=== PATIENT | female | born 1985 | race Caucasian/White ===

== ENCOUNTER 2019-09-28 11:41 | Outpatient (CLI) | payer OTHER, SELFPAY ==
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
== END 2019-09-28 11:42 | disposition home or self-care (01) ==
PROVIDERS: PCP Physician Assistant; Visit Provider Physician Assistant
DX: M54.6 Pain in thoracic spine (principal)
CPT/HCPCS: 72072

== ENCOUNTER 2019-09-28 17:54 | Emergency (ER) | payer OTHER, SELFPAY ==
[2019-09-28 18:08] VITALS: BP 151/104; PULSE 70; RESP 16; TEMP 36.4; O2SAT 100
--- NOTE | 2019-09-28 18:54 | ED.GENADULT ---
HPI - General Adult General Chief complaint: Headache Stated complaint: headaches Time Seen by Provider: 09/28/19 18:28 Source: patient and family Mode of arrival: ambulatory Limitations: no limitations History of Present Illness HPI narrative: Patient is a 34-year-old female who presents to emergency department for evaluation of headache for the last day noting that she has diffuse headache which is different than her typical migraine headaches had an episode of emesis today felt dizzy yesterday has been taking naproxen prescribed by her primary care doctor. Patient on arrival is resting comfortably in the room in no distress denies any URI symptoms. Related Data Home Medications Medication Instructions Recorded Confirmed escitalopram oxalate [Lexapro] mg 09/28/19 naproxen 09/28/19 trazodone 50 mg PO HS 09/28/19 Allergies Allergy/AdvReac Type Severity Reaction Status Date / Time clindamycin Allergy Intermediate rash Verified 09/28/19 17:55 Penicillins Allergy Unknown Rash Verified 09/28/19 17:55 Sulfa (Sulfonamide Allergy Unknown Rash Verified 09/28/19 17:55 Antibiotics) Review of Systems Review of Systems: All systems reviewed & are unremarkable except as noted in HPI and below PMFSH Past Medical History Medical History (Updated 09/28/19 @ 19:45 by Nirmal Benito PA-C) Migraine headache Social History Social History (Updated 09/28/19 @ 18:55 by Nirmal Benito PA-C) Smoking status: Never smoker Gender identity (if verbalized by the patient): Female Exam Narrative: Exam Narrative: GENERAL: Well-appearing, well-nourished, and in no acute distress. HEAD: Normocephalic, atraumatic. EYES: PERRLA and EOMI. ENT: Nares clear, no rhinorrhea or epistaxis. Mucous membranes moist. CHEST: Clear to auscultation. No respiratory distress. No wheezes rales or rhonchi HEART: Regular rate and rhythm. No murmur heard. EXTREMITIES: Normal range of motion. No edema. SKIN: Warm, dry, no rash. NEURO: No focal deficits. Alert and oriented x3. Cranial nerves II through XII grossly intact. Normal speech and gait PSYCH: Normal mood and affect. Course Course Emergency Course: Patient in the room in no distress aware of case findings treatment plan and diagnosis Vital Signs Vital signs: Vital Signs Temperature 97.6 F 09/28/19 18:08 Pulse Rate 70 09/28/19 18:08 Respiratory Rate 16 09/28/19 18:08 Blood Pressure 151/104 H 09/28/19 18:08 Pulse Oximetry 100 09/28/19 18:08 Temperature 97.6 F 09/28/19 18:08 Pulse Rate 70 09/28/19 18:08 Respiratory Rate 16 09/28/19 18:08 Blood Pressure 151/104 H 09/28/19 18:08 Pulse Oximetry 100 09/28/19 18:08 Medical Decision Making MDM Narrative Medical decision making narrative: Patients headache was not sudden or maximal in onset. There are o focal neurological deficits on exam. Subarachnoid hemorrhage is felt to be unlikey at this time. There is no history of fever, and neck is supple without meningismus, making meningitis unlikely. No traumatic history or signs of trauma on exam. No risk factors for CVA, risk factors reviewed. NO ocular signs on exam and in history to suggest acute glaucoma. Patients headache is felt to be a reasonable candidate for outpatient evaluation Vital Signs Vital Signs: Vital Signs Temperature 97.6 F 09/28/19 18:08 Pulse Rate 70 09/28/19 18:08 Respiratory Rate 16 09/28/19 18:08 Blood Pressure 151/104 H 09/28/19 18:08 Pulse Oximetry 100 09/28/19 18:08 Temperature 97.6 F 09/28/19 18:08 Pulse Rate 70 09/28/19 18:08 Respiratory Rate 16 09/28/19 18:08 Blood Pressure 151/104 H 09/28/19 18:08 Pulse Oximetry 100 09/28/19 18:08 Discharge Plan Discharge Clinical Impression: Migraine Patient Disposition: Home, Self-Care Condition: Stable Instructions: Antibiotic Form, Acute Headache (ED) Additional Instructions: Follow up with your primary care doctor in
[2019-09-28] MEDS: SODIUM CHLORIDE 0.9% IV 1,000 ML 999 ML IV CONT (19:02)
[2019-09-28] MEDS: METOCLOPRAMIDE HCL INJ 10 MG/2 ML VIAL IV PUSH (19:02)
[2019-09-28] MEDS: KETOROLAC 30 MG/ML VIAL (*BKC) IV PUSH (19:03)
== END 2019-09-28 20:13 | disposition home or self-care (01) ==
PROVIDERS: Emergency Provider Emergency Medicine; PCP Physician Assistant
DX: G43.909 Migraine, unspecified, not intractable, without status migrainosus (principal)
CPT/HCPCS: 96374; 96375; 99284; J1200; J1885; J2765; J7030

== ENCOUNTER → 2020-07-04 16:06 | Outpatient (CLI) | payer OTHER, SELFPAY ==
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
== END ==
PROVIDERS: PCP Physician Assistant; Visit Provider Chiropractor
DX: G43.909 Migraine, unspecified, not intractable, without status migrainosus (principal); M54.2 Cervicalgia
CPT/HCPCS: 72050

== ENCOUNTER 2022-01-06 10:46 | Outpatient (CLI) | payer OTHER, SELFPAY ==
--- NOTE | ~2022-01-06 | XR_ITS ---
XR thoracic spine 2V DATE: 01/06/2022 11:39 INDICATION: Mid back pain TECHNIQUE: Standing AP and lateral views COMPARISON: 09/28/2019 thoracic spine FINDINGS: No fracture or dislocation or bone destruction. The thoracic pedicles are intact. No parasp inal soft tissue thickening. Slight degenerative lipping in the lower thoracic spine. IMPRESSION: Slight degenerative change Reviewed, dictated and finalized at location A. IMPRESSION: Slight degenerative change
--- NOTE | ~2022-01-06 | XR_ITS ---
XR cervical spine 4-5V DATE: 01/06/2022 11:40 INDICATION: Bilateral neck pain TECHNIQUE: AP, open-mouth, lateral and flexion and extension lateral views COMPARISON: 07/04/2020 cervical spine FINDINGS: There is minimal levoscoliosis of the cervical and upper thoracic spine. Cervical curvature is intact. Normal alignment of the cervical spine in neutral, flexion and extension. C1 and C2 are normally aligned and the odontoid process is intact. No fracture or dislocation or locked facet or prevertebral soft tissue swelling. Cervical interspaces are preserved. IMPRESSION: No significant abnormality Reviewed, dictated and finalized at location A. IMPRESSION: No significant abnormality
--- NOTE | ~2022-01-06 | XR_ITS ---
XR lumbar spine 2-3V DATE: 01/06/2022 11:39 INDICATION: Back pain TECHNIQUE: Standing AP and lateral views of lumbar spine COMPARISON: None FINDINGS: Normal alignment lumbar spine. No fracture or bone destruction or spondylolisthesis. The ryan mbar pedicles are intact. Lumbar and lumbosacral interspaces are well preserved. The sacroiliac joint s are normal. IMPRESSION: Negative Reviewed, dictated and finalized at location A. IMPRESSION: Negative
== END 2022-01-06 10:47 | disposition home or self-care (01) ==
PROVIDERS: PCP Physician Assistant; Visit Provider Chiropractor
DX: M54.2 Cervicalgia (principal); M54.6 Pain in thoracic spine; M54.50 Low back pain, unspecified
CPT/HCPCS: 72050; 72070; 72100

== ENCOUNTER 2023-03-23 08:36 | Outpatient (CLI) | payer OTHER, SELFPAY ==
--- NOTE | ~2023-03-23 | MR_ITS ---
EXAMINATION: MR cervical spine wo/w con DATE: 03/23/2023 10:03 INDICATION: Cervical radiculopathy. TECHNIQUE: Magnetic resonance imaging (MRI) of the cervical spine was performed without and with 13 m L MultiHance intravenous contrast. COMPARISON: Cervical spine radiograph 01/06/2022 FINDINGS: There is 9 degrees levocurvature of cervicothoracic spine. Vertebral body heights and inter vertebral disc heights are normal. The spinal cord signal intensity is normal. The following disc lev els are specifically discussed: C2-C3: The disc does not extend beyond the endplate margin. There is no uncovertebral joint osteoarth ritis. There is mild left facet joint osteoarthritis. There is no neural foraminal stenosis. There is no central canal stenosis. C3-C4: The disc does not extend beyond the endplate margin. There is no uncovertebral joint osteoarth ritis. There is mild left facet joint osteoarthritis. There is no neural foraminal stenosis. There is no central canal stenosis. C4-C5: The disc does not extend beyond the endplate margin. There is mild bilateral uncovertebral isaias nt osteoarthritis. There is no facet joint osteoarthritis. There is mild right neural foraminal steno sis. There is no central canal stenosis. C5-C6: The disc does not extend beyond the endplate margin. There is no uncovertebral joint osteoarth ritis. There is no facet joint osteoarthritis. There is no neural foraminal stenosis. There is no rambo tral canal stenosis. C6-C7: The disc does not extend beyond the endplate margin. There is mild left uncovertebral joint os teoarthritis. There is mild bilateral facet joint osteoarthritis. There is no neural foraminal stenos is. There is no central canal stenosis. C7-T1: The disc does not extend beyond the endplate margin. There is no uncovertebral joint osteoarth ritis. There is no facet joint osteoarthritis. There is no neural foraminal stenosis. There is no rambo tral canal stenosis. IMPRESSION: 1. Mild cervical spondylosis. Reviewed, dictated and finalized at location A.
--- NOTE | ~2023-03-23 | MR_ITS ---
EXAMINATION: MR brain/brain stem wo/w con DATE: 03/23/2023 10:03 INDICATION: Headache. Numbness. TECHNIQUE: Magnetic resonance imaging (MRI) of the brain and brainstem was performed without and with 13 mL MultiHance intravenous contrast. COMPARISON: None. FINDINGS: There is no intracranial hemorrhage, acute infarction, or abnormal intracranial mass lesion . The ventricles are normal in size. There is mild mucosal thickening in the paranasal sinuses. The o rbits are normal. The mastoid air cells are normal. IMPRESSION: 1. Normal brain. Reviewed, dictated and finalized at location A. IMPRESSION: 1. Normal brain.
== END 2023-03-23 08:37 | disposition home or self-care (01) ==
PROVIDERS: PCP Physician Assistant; Visit Provider Physician Assistant
DX: R26.89 Other abnormalities of gait and mobility (principal)
CPT/HCPCS: 70553; 72156; A9577

== ENCOUNTER 2023-12-21 07:58 | Outpatient (CLI) | payer OTHER, SELFPAY ==
--- NOTE | ~2023-12-21 | US_ITS ---
Pelvic ultrasound. Clinical History: Abnormal uterine bleeding Technique: Realtime transabdominal and transvaginal scanning of the pelvis was performed. Color flow Doppler and Doppler spectral analysis were performed. Findings: The uterus is retroverted.. The endometrial stripe has a thickness of 14 mm. No focal mass is identified. The right ovary measures 2.5 x 3.9 x 1.9 cm. No significant right ovarian or adnexal mass is seen. The left ovary measures 2.5 x 1.4 x 2.3 cm. No significant left ovarian or adnexal mass is seen. There is no evidence of free fluid in the cul de sac. Impression: No significant abnormality seen. Reviewed, dictated and finalized at location . Impression: No significant abnormality seen.
== END 2023-12-21 07:59 | disposition home or self-care (01) ==
PROVIDERS: PCP Physician Assistant
DX: N93.9 Abnormal uterine and vaginal bleeding, unspecified (principal)
CPT/HCPCS: 76830; 76856